=== PATIENT | female | born 1985 | race Caucasian/White ===

== ENCOUNTER → 2016-09-22 | Outpatient (REF) | payer BC ==
[~2016-09-22] MED LIST: ACET500T PO; ANUS2.5C2 EXT; DOCU100C PO; IBUP200T2 PO; MOM30SS PO; PNV-CAP5 PO
== END ==
LOC: M LAB REF 12:52
PROVIDERS: ATTEND Obstetrics & Gynecology
DX: R30.0 Dysuria (principal)

== ENCOUNTER → 2016-10-20 | Outpatient (CLI) | payer BC ==
--- NOTE | 2016-10-20 11:32 | REP ---
Obstetric sonography: History: Supervision of , followup anatomy. Findings: Scanning through the gravid uterus demonstrates a viable single intrauterine gestation in a breech lie. motion is observed and heart rate is recorded at 160 beats per minute. An anterior fundal grade zero placenta is seen without evidence of previa or abruption. Amniotic fluid is subjectively normal. Closed cervical length is 3.6 cm measured trans vaginally. Cerclage is noted near the internal os previously placed. No extrauterine abnormality is observed. The umbilical cord is seen draping across the shoulders. No anomaly is seen. The following anatomic structures are identified and felt to be sonographically unremarkable today: cranium, choroid plexus, cavum, cerebellum and posterior fossa, face and profile, lungs, four-chamber heart with left and right ventricular outflow tract views, diaphragm, left-sided stomach, abdominal wall cord insertion, three-vessel umbilical cord, kidneys and bladder, spine, upper and lower extremities. Biometry chart: BPD 23.1 cm 25 weeks 1 day Abdominal circumference 19.3 cm 24 weeks 0 days Femur length 4.2 cm 23 weeks 6 days Humeral length 4.2 cm 25 weeks 2 days HC/AC ratio normal 1.19. Estimated weight 663 grams, 1 pound 7 ounces, 28th percentile for 24 weeks 5 days. Impression: Viable single intrauterine gestation at 24 weeks 4 days by today's composite sonographic criteria. LAMAR by today's sonography February 05, 2017. anatomic survey is felt to be complete. Closed cervical length is 3.6 cm measured trans vaginally. Cervical cerclage seen in place. Signed by Daljit Alba MD 10/20/2016 02:23 P
== END ==
LOC: M RAD 09:11
PROVIDERS: ATTEND Obstetrics & Gynecology
DX: Z36 Encounter for antenatal screening of mother (principal); Z3A.24 24 weeks gestation of pregnancy

== ENCOUNTER → 2016-10-25 | Outpatient (REF) | payer BC | LOC: M LAB REF 13:09 | PROVIDERS: ATTEND Obstetrics & Gynecology | DX: O09.291 Supervision of pregnancy with other poor reproductive or obstetric history, first trimester (principal); Z3A.00 Weeks of gestation of pregnancy not specified ==

== ENCOUNTER → 2016-11-01 | Outpatient (CLI) | payer BC ==
[2016-11-01 12:20] LABS: MEAN CORPUSCULAR HEMOGLOBIN 30.5 pg (27.0-33.0); MEAN CORPUSCULAR HGB CONC 33.1 g/dl (32.0-36.5); MEAN CORPUSCULAR VOLUME 92.2 fl (80.0-96.0); RED CELL DISTRIBUTION WIDTH 13.2 % (11.5-14.5); WHITE BLOOD COUNT 8.9 K/mm3 (4.0-10.0)
== END ==
LOC: M SMT 08:35
PROVIDERS: ATTEND Obstetrics & Gynecology
DX: O09.292 Supervision of pregnancy with other poor reproductive or obstetric history, second trimester (principal); Z3A.00 Weeks of gestation of pregnancy not specified

== ENCOUNTER → 2016-12-21 | Outpatient (CLI) | payer BC ==
--- NOTE | 2016-12-21 09:42 | REP ---
Obstetric ultrasound for biophysical profile: Gestational age. According to the first ultrasound during this gestation is 33 weeks 3 days with an LAMAR of 02/05/2017. heart rate is 155 beats per minute. Cervix is 4.3 cm length. There is a single intrauterine gestation in a vertex presentation. Placenta is anterior without previa or abruptio. The placenta demonstrates grade 1 maturity. The amniotic fluid index is 15.5 (8.5 - 24.3). Biophysical profile: Breathing 2 Movement 2 Tone 2 AFV 2 Total / Umbilical artery Doppler assessment: S/D ratio 2.53 (2.30-3.30) Resistive Index 0.60 (0.59-0.75 Diastolic Velocity 15.0 cm/sec (>10 cm/sec) No additional evaluation is requested or performed. Signed by Jarrett Merrill MD 12/21/2016 09:33 A
== END ==
LOC: M RAD 07:56
PROVIDERS: ATTEND Obstetrics & Gynecology
DX: Z34.83 Encounter for supervision of other normal pregnancy, third trimester (principal); M32.9 Systemic lupus erythematosus, unspecified

== ENCOUNTER → 2016-12-27 | Outpatient (CLI) | payer BC ==
--- NOTE | 2016-12-27 16:05 | REP ---
OB ULTRASOUND: HISTORY: Followup growth. Multiple sonographic images of the gravid uterus show a single living intrauterine gestation in the cephalic presentation. Doppler interrogation of the heart was not documented, however, the cytology technologist has stated in the worksheet that cardiac motion was observed. The placenta is anterior and not low lying. The subjective amniotic fluid volume is within normal limits. Doppler interrogation of the umbilical cord shows an AB ratio of 2.4. This is within the normal range of 2 to 3. The calculated amniotic fluid index is 8.9 with an expected range 8 to 24.8. BPD 9.1 cm = 36 weeks 5 days HC 31.8 cm = 35 weeks 5 days AC 29.7 cm = 33 weeks 4 days FL 6.4 cm = 33 weeks 1 day The estimated weight is 3222 grams which is at the 39th percentile for a 34 week 3 days gestational age. IMPRESSION: Single living intrauterine gestation as described above with an estimated gestational age of 34 weeks 1 day by composite criteria and an estimated date of delivery of 02/06/2017 by today's exam. Signed by Sotero Hay DO 12/28/2016 09:01 A
== END ==
LOC: M SMT 14:19
PROVIDERS: ATTEND Specialist
DX: O36.59 Maternal care for other known or suspected poor fetal growth (principal)

== ENCOUNTER → 2017-01-14 | Outpatient (REF) | payer BC | LOC: M LAB REF 13:22 | PROVIDERS: ATTEND Obstetrics & Gynecology | DX: Z34.83 Encounter for supervision of other normal pregnancy, third trimester (principal) ==

== ENCOUNTER → 2017-01-20 | Outpatient (CLI) | payer BC ==
[~2017-01-20] MED LIST changes: +ASPI81TA85 PO; +HEPA1010VL INJ; +HYDR200T3 PO; +PRENTAB9 PO; +VITA200038 PO
--- NOTE | 2017-01-21 03:37 | REP ---
Clinical: Growth evaluation. Comparison: 12/27/2016 . Findings: Examination demonstrates a single live intrauterine in cephalic presentation. motion is identified by technologist. Placenta is noted anteriorly and grade I without evidence for placenta previa or abruption. Amniotic fluid volume is normal. Nuchal cord cannot be excluded. Gestational age by LMP 37 weeks 6 days with LAMAR 02/04/2017 . Gestational age by current measurements 37 weeks 1 day with LAMAR 02/09/2017 . FHR equals 150 beats per minute. BPD 9.6 cm 39 weeks 1 day HC 33.7 cm 38 weeks 4 days AC 33.3 cm 37 weeks 1 day FL 7.1 cm 36 weeks 3 days HC/AC ratio 1.01 Estimated weight 3193 grams ( 49th percentile). Amniotic fluid index equals 11.2 cm (7.3 - 24.0). Impression: 1. Single live advanced gestation in cephalic presentation demonstrating appropriate interval growth. 2. Nuchal cord cannot be excluded. 3. No gross abnormalities are identified. Signed by eLe Miller MD 01/21/2017 03:28 A
== END ==
LOC: M SMT 08:37
PROVIDERS: ATTEND Obstetrics & Gynecology
DX: Z34.83 Encounter for supervision of other normal pregnancy, third trimester (principal)

== ENCOUNTER 2017-02-07 07:37 | Inpatient (IN) | payer BC ==
[2017-02-07] VITALS (8 sets, daily range): BP systolic 103–125; BP diastolic 53–71
[~2017-02-07] VITALS: Ht 165.1 cm; Wt 108.0 kg
[2017-02-07] MEDS ORDERED: [UNRECOGNIZED DRUG - OTHER] PO (08:29)
[2017-02-07] MEDS ORDERED: LR 500 ML IV ONE (08:30)
[2017-02-07] MEDS ORDERED: BICITRA 30ML SOLN UDC PO ONE (08:30)
[2017-02-07 08:54] LABS: MEAN CORPUSCULAR HEMOGLOBIN 31.2 pg (27.0-33.0); MEAN CORPUSCULAR HGB CONC 34.7 g/dl (32.0-36.5); RED CELL DISTRIBUTION WIDTH 13.3 % (11.5-14.5); WHITE BLOOD COUNT 8.4 K/mm3 (4.0-10.0)
[2017-02-07] MEDS ORDERED: NALOXONE INJ 0.4 MG/1 ML VIAL (J2310) IV PRN ×2 (09:55)
[2017-02-07] MEDS ORDERED: METOCLOPRAMIDE INJ 10MG/2ML VIAL (J2765) IV PRN ×2 (09:55→11:45)
[2017-02-07] MEDS ORDERED: ONDANSETRON 4MG/2ML VIAL (J2405) IV PRN ×3 (09:55→11:45)
[2017-02-07] MEDS ORDERED: NALBUPHINE HCL 10 MG/ML AMP (J2300) IV PRN ×2 (09:55→11:45)
[2017-02-07] MEDS ORDERED: KETOROLAC 60 MG/2 ML VIAL (J1885) As Ordered ONE (10:07)
[2017-02-07] MEDS ORDERED: OXYTOCIN INJ 10 UNITS/ML VIAL (J2590) As Ordered ONE ×2 (10:07→10:38)
[2017-02-07] MEDS ORDERED: ONDANSETRON 4MG/2ML VIAL (J2405) As Ordered ONE (10:07)
[2017-02-07] MEDS ORDERED: PHENYLephrine HCL 500 MCG/5 ML (100MCG/ML) SYRINGE (J2370) As Ordered ONE ×2 (10:07→10:14)
[2017-02-07] MEDS ORDERED: ePHEDrine SULFATE 25 MG/5 ML(5MG/ML) SYRINGE As Ordered ONE ×2 (10:07→10:14)
[2017-02-07] MEDS ORDERED: MORPHINE PRES-FREE INJ 10 MG/10 ML VIAL (J2274) As Ordered ONE (10:07)
[2017-02-07] MEDS ORDERED: dexameTHASONE 4 MG/ML 1ML VIAL (J1100) As Ordered ONE (10:07)
[2017-02-07] MEDS: LR 1,000 ML IV SCH ×2 (11:08→15:55)
[2017-02-07] MEDS ORDERED: PROMETHAZINE 25 MG TAB PO PRN (11:15)
[2017-02-07] MEDS ORDERED: MEASLES,MUMPS,RUBELLA VACCINE INJ (MMR-II) (90707) SC SCH (11:15)
[2017-02-07] MEDS ORDERED: RHOGAM 300 MCG (1500 IU) INJ (J2790) IM SCH (11:15)
[2017-02-07] MEDS ORDERED: PERCOCET 5MG/325MG TAB PO PRN ×2 (11:15)
[2017-02-07] MEDS ORDERED: LR 1,000 ML IV SCH (11:45)
[2017-02-07] MEDS ORDERED: fentaNYL 100 MCG/2 ML INJECTION (J3010) IV PRN (11:45)
[2017-02-07] MEDS ORDERED: MEPERIDINE INJ 25 MG/ML VIAL (J2175) IV PRN (11:45)
[2017-02-07] MEDS: OXYTOCIN DRIP 30 UNITS in APPROPRIATE DILUENT 1 EA IV SCH ×2 (11:56→15:30)
[2017-02-07] MEDS: DOCUSATE SODIUM 100 MG CAP PO SCH ×2 (12:43→20:55)
[2017-02-07] MEDS: PRENATAL VITAMIN TAB PO SCH (12:43)
[2017-02-07] MEDS: KETOROLAC 30 MG/ML VIAL (J1885) IV SCH ×2 (16:49→22:18)
[2017-02-07] MEDS: ENOXAPARIN 40 MG/0.4 ML SYRINGE (J1650) SC SCH (18:46)
[2017-02-07] MEDS: HYDROXYCHLOROQUINE 200 MG TAB PO SCH (18:46)
[2017-02-08 02:30] VITALS: BP 102/55
[2017-02-08] MEDS: KETOROLAC 30 MG/ML VIAL (J1885) IV SCH ×2 (04:06→10:35)
[2017-02-08 06:14] VITALS: BP 96/51
[2017-02-08 06:53] LABS: MEAN CORPUSCULAR HEMOGLOBIN 31.2 pg (27.0-33.0); MEAN CORPUSCULAR HGB CONC 34.4 g/dl (32.0-36.5); MEAN CORPUSCULAR VOLUME 90.8 fl (80.0-96.0); RED CELL DISTRIBUTION WIDTH 13.5 % (11.5-14.5); WHITE BLOOD COUNT 14.9 K/mm3 (4.0-10.0)
[2017-02-08] MEDS: DOCUSATE SODIUM 100 MG CAP PO SCH ×2 (07:43→21:31)
[2017-02-08] MEDS: PRENATAL VITAMIN TAB PO SCH (07:43)
[2017-02-08] MEDS ORDERED: OXYC1TAB23 PO (08:49)
[2017-02-08] MEDS ORDERED: IBUP600T26 PO (08:50)
[2017-02-08] MEDS ORDERED: COLA100C3 PO (08:51)
[2017-02-08 10:00] VITALS: BP 129/63
[2017-02-08 14:00] VITALS: BP 120/58
[2017-02-08] MEDS: ENOXAPARIN 40 MG/0.4 ML SYRINGE (J1650) SC SCH (17:48)
[2017-02-08] MEDS: HYDROXYCHLOROQUINE 200 MG TAB PO SCH (17:48)
[2017-02-08] MEDS: IBUPROFEN 800 MG TAB PO SCH (17:49)
[2017-02-08 17:58] VITALS: BP 102/50
[2017-02-08] MEDS ORDERED: SIMETHICONE 80 MG CHEW TAB PO PRN (19:00)
[2017-02-08 22:25] VITALS: BP 115/73
[2017-02-09] MEDS: IBUPROFEN 800 MG TAB PO SCH ×2 (02:00→08:36)
[2017-02-09 06:17] VITALS: BP 106/50
[2017-02-09] MEDS: PRENATAL VITAMIN TAB PO SCH (08:36)
[2017-02-09] MEDS: DOCUSATE SODIUM 100 MG CAP PO SCH (08:36)
[2017-02-09] MEDS ORDERED: plaquenil PO (08:43)
[2017-02-09] MEDS ORDERED: IBUP-1114 PO (08:43)
[2017-02-09] MEDS ORDERED: MYLI40DR PO (08:43)
[2017-02-09] MEDS ORDERED: LOVE1INJ SC (08:43)
[2017-02-09] MEDS ORDERED: OXYC1TAB23 PO (08:43)
== END 2017-02-09 15:30 | disposition home or self-care (01) | DRG 540 ==
LOC: M LDI 07:37 → M OBS 12:20
PROVIDERS: ADMIT Specialist; ATTEND Specialist
PROC: 10D00Z1 Extraction of Products of Conception, Low, Open Approach (ICD-10-PCS; principal; 2017-02-07 09:30)
DX: O34.31 Maternal care for cervical incompetence, first trimester (principal); D68.61 Antiphospholipid syndrome; O99.12 Other diseases of the blood and blood-forming organs and certain disorders involving the immune mechanism complicating childbirth; Z37.0 Single live birth; Z3A.39 39 weeks gestation of pregnancy; Z87.51 Personal history of pre-term labor

== ENCOUNTER → 2018-05-08 | Outpatient (CLI) | payer BC | LOC: M ADAMS 19:18 | DX: M25.512 Pain in left shoulder (principal) | CPT/HCPCS: 73030 ==

== ENCOUNTER → 2018-10-19 | Outpatient (REF) | payer BC ==
[~2018-10-19] MED LIST changes: +COLA100C5 PO; +IBUP-1022 PO; +IBUP-1114 PO; +LOVE1INJ SC; +MYLI40DR PO; +OXYC1TAB23 PO; +[UNRECOGNIZED DRUG - OTHER] PO; +plaquenil PO
[2018-10-24 14:17] LABS: HPV HYBRID CAPTURE II Negative (Negative)
== END ==
LOC: M LAB REF 17:29
PROVIDERS: ATTEND Obstetrics & Gynecology
DX: Z12.4 Encounter for screening for malignant neoplasm of cervix (principal)
CPT/HCPCS: 87624; G0123

== ENCOUNTER → 2018-11-08 | Outpatient (CLI) | payer BC ==
[2018-11-08 14:19] LABS: BASO % 0.2 % (0.0-1.0); EOS # 0.1 10^3/uL (0.0-0.50); EOS % 1.1 % (0.0-3.0); HEMATOCRIT 43.3 % (36.0-47.0); HEMOGLOBIN 13.9 g/dl (12.0-15.5); LYMPH # 1.3 10^3/uL (1.5-4.5); LYMPH % 13.5 % (24.0-44.0); MEAN CORPUSCULAR HEMOGLOBIN 29.6 pg (27.0-33.0); MEAN CORPUSCULAR HGB CONC 32.1 g/dl (32.0-36.5); MEAN CORPUSCULAR VOLUME 92.3 fl (80.0-96.0); MONO # 0.6 10^3/uL (0.0-0.8); MONO % 6.3 % (0.0-5.0); NEUTROPHILS # 7.3 10^3/uL (1.8-7.7); NEUTROPHILS % 78.6 % (36.0-66.0); PLATELET COUNT, AUTOMATED 173 10^3/uL (150-450); RED BLOOD COUNT 4.69 10^6/uL (4.00-5.40); WHITE BLOOD COUNT 9.3 10^3/uL (4.0-10.0)
[2018-11-08 14:24] LABS: ALT/SGPT 15 U/L (12-78); BILIRUBIN,TOTAL 0.6 MG/DL (0.2-1.0); GLOMERULAR FILTRATION RATE > 60.0 (>60); GLUCOSE CHALLENGE TEST 1 HOUR 104 MG/DL (LESS THAN 140); LDH LACTATE DEHYDROGENASE 162 U/L (84-246); URIC ACID 2.7 MG/DL (2.6-6.0)
[2018-11-08 14:45] LABS: RUBELLA IgG QUALITATIVE IMMUNE (IMMUNE)
[2018-11-08 14:46] LABS: TOTAL PROTEIN,RANDOM URINE < 5.0 MG/DL (0.0-12.0)
[2018-11-08 15:13] LABS: HIV 1&2 SCREEN CENTAUR NEGATIVE (NEGATIVE)
[2018-11-08 16:59] LABS: CHLAMYDIA DNA AMPLIFICATION NEGATIVE (NEGATIVE); GC DNA AMPLIFICATION NEGATIVE (NEGATIVE)
== END ==
LOC: M SMT 09:36
PROVIDERS: ATTEND Obstetrics & Gynecology
DX: Z34.81 Encounter for supervision of other normal pregnancy, first trimester (principal); Z3A.08 8 weeks gestation of pregnancy; Z36.89 Encounter for other specified antenatal screening

== ENCOUNTER → 2018-11-15 | Outpatient (CLI) | payer BC ==
[2018-11-15 11:06] LABS: FREE T4 1.05 NG/DL (0.76-1.46); THYROID STIMULATING HORMONE 0.8 uIU/ML (0.358-3.740); TOTAL 25(OH) VITAMIN D 20.3 NG/ML (30.0-100.0)
== END ==
LOC: M SMT 08:58
PROVIDERS: ATTEND Advanced Practice Midwife
DX: F39 Unspecified mood [affective] disorder (principal)

== ENCOUNTER → 2019-03-02 | Outpatient (CLI) | payer BC ==
[2019-03-02 13:34] LABS: HEMATOCRIT 39.1 % (36.0-47.0); HEMOGLOBIN 12.9 g/dl (12.0-15.5); PLATELET COUNT, AUTOMATED 158 10^3/uL (150-450); RED BLOOD COUNT 4.16 10^6/uL (4.00-5.40); WHITE BLOOD COUNT 7.9 10^3/uL (4.0-10.0)
== END ==
LOC: M SMT 09:31
PROVIDERS: ATTEND Obstetrics & Gynecology
DX: O09.292 Supervision of pregnancy with other poor reproductive or obstetric history, second trimester (principal); Z3A.00 Weeks of gestation of pregnancy not specified

== ENCOUNTER → 2019-03-13 | Outpatient (CLI) | payer BC ==
--- NOTE | 2019-03-13 08:44 | REP ---
Clinical: Growth evaluation. Comparison: None Findings: Examination demonstrates a single live intrauterine in cephalic presentation. motion is identified by technologist. Placenta is noted posterior and grade one without evidence for placenta previa or abruption. Amniotic fluid volume is normal. Cervix measures 4.1 cm in length and appears closed. No evidence for nuchal cord. Gestational age by LMP 28 weeks 6 days with LAMAR 05/30/2019 . Gestational age by current measurements 31 weeks 6 days with LAMAR 05/09/2019 . FHR equals 153 beats per minute. BPD 8.1 cm 32 weeks 3 days HC 29.2 cm 32 weeks 1 day AC 26.6 cm 30 weeks 5 days FL 6.1 cm 31 weeks 6 days HL 5.5 cm 32 weeks 0 days HC/AC ratio 1.09 Estimated weight 1753 grams (*Greater than 97th percentile based on age by LMP). Amniotic fluid index: 12.3 cm (deepest pocket). Umbilical cord SD ratio: 3.12 Anatomical assessment demonstrates normal structures including cranium, choroid plexus, cavum, cerebellum/posterior fossa, facial features, lungs, four-chamber heart, diaphragm, stomach, cord insertion/three-vessel cord, kidneys/bladder, and lower extremities. Impression: 1. Single live intrauterine in cephalic presentation. Growth and estimated weight are greater than expected based on LMP. No prior examinations are available for comparison. 2. No obvious anatomical abnormalities are appreciated, but evaluation of the cardiac ventricular outflow tracts, spine and upper extremities are limited due to positioning and the age. Electronically Signed by Lee Miller MD 03/13/2019 08:36 A
== END ==
LOC: M RAD 07:39
PROVIDERS: ATTEND Advanced Practice Midwife
DX: O26.843 Uterine size-date discrepancy, third trimester (principal); Z3A.31 31 weeks gestation of pregnancy

== ENCOUNTER → 2019-04-06 | Outpatient (CLI) | payer BC ==
--- NOTE | 2019-04-06 15:47 | REP ---
Obstetric ultrasound for biophysical profile: There is a single intrauterine gestation in a vertex presentation. heart rate is 152 beats per minute. The cervix measures 4.0 cm length. Gestational age by the first ultrasound is 35 weeks 2 days with an LAMAR of 05/09/2019. Gestational age by LMP is 32 weeks 2 days/LAMAR 05/30/2019. Subjectively the amniotic fluid volume is normal. The amniotic fluid index is 14.1 (8.5 - 24.3). biophysical profile: Breathing 2.0 Movement 2.0 Tone 2.0 AFV 2.0 Total 8.0 / 8.0 Umbilical artery Doppler assessment: S/D ratio 2.37 (2.30-3.30) Resistive Index 0.58 (0.59-0.75 Diastolic Velocity 18.1 (>10 cm/sec) Electronically Signed by Jarrett Merrill MD 04/06/2019 03:39 P
== END ==
LOC: M RAD 14:41
PROVIDERS: ATTEND Specialist
DX: O09.213 Supervision of pregnancy with history of pre-term labor, third trimester (principal)

== ENCOUNTER → 2019-04-13 | Outpatient (CLI) | payer BC ==
--- NOTE | 2019-04-13 16:15 | REP ---
Obstetric ultrasound, third trimester for biophysical profile. The colon. There is a single intrauterine gestation in a vertex presentation. heart rate is 139 beats per minute. The amniotic fluid volume subjectively is normal. The amniotic fluid index is 14.9 (8.2 - 24.6). biophysical profile: Breathing 2.0 Movement 2.0 Tone 0.0 AFV 2.0 Total 8.0 / 8.0 Umbilical artery Doppler assessment: S/D ratio 2.27 (2.30-3.30) Resistive Index 0.56 (0.59-0.75 Diastolic Velocity 20.1. (>10 cm/sec) the Gestational age by the first ultrasound is 36 weeks 2 days/LAMAR 04/20/2019. Gestational age by LMP is 33 weeks 2 days/LAMAR 05/20/2019. The Cervix measures 3.6 cm length. Electronically Signed by Jarrett Merrill MD 04/13/2019 04:07 P
== END ==
LOC: M RAD 14:47
PROVIDERS: ATTEND Specialist
DX: O09.213 Supervision of pregnancy with history of pre-term labor, third trimester (principal); O09.523 Supervision of elderly multigravida, third trimester; Z3A.36 36 weeks gestation of pregnancy

== ENCOUNTER → 2019-04-20 | Outpatient (CLI) | payer BC ==
--- NOTE | 2019-04-20 16:34 | REP ---
Trimester obstetric ultrasound in a patient with history of labor. There is a single intrauterine gestation in a vertex presentation. There is movement and cardiac activity. heart rate is 141 beats per minute. The placenta is posterior / fundal. There is no placenta previa or abruptio. The placenta is grade II. The amniotic fluid volume subjectively is normal. The amniotic fluid index is 13.5 (8.0 - 24.8). The cervix measures 3.2 cm length. Gestational age by today's ultrasound is 37 weeks 1 day/LAMAR 05/10/2019. Gestational age by the first ultrasound is 37 weeks 2 days/LAMAR 05/09/2019. Gestational age by LMP is 34 weeks 2 days/LAMAR 05/30/2019. weight is 3259 grams/7 pounds, 2 ounces. This is greater than 97th percentile for 34 weeks 2 days. biophysical profile: Breathing 2.0 Movement 2.0 Tone 2.0 AFV 2.0 Total 8.0 / 8.0 Umbilical artery Doppler assessment: S/D ratio 2.11 (2.30-3.30) Resistive Index 0.53 (0.59-0.75) Diastolic Velocity 32.3 (>10 cm/sec) Electronically Signed by Jarrett Merrill MD 04/20/2019 04:26 P
== END ==
LOC: M RAD 14:51
PROVIDERS: ATTEND Specialist
DX: O99.213 Obesity complicating pregnancy, third trimester (principal); O09.523 Supervision of elderly multigravida, third trimester; E66.9 Obesity, unspecified; Z3A.37 37 weeks gestation of pregnancy

== ENCOUNTER → 2019-04-27 | Outpatient (CLI) | payer BC ==
--- NOTE | 2019-04-28 09:59 | REP ---
HISTORY: High risk . COMPARISON: Multiple priors. Multiple ultrasonographic images of the gravid uterus show a single living intrauterine gestation in the cephalic presentation. Doppler interrogation of the heart shows a heart rate of 155 beats per minute. The cervix measures 3.2 cm in length and is closed. The subjective amniotic fluid volume is within normal limits. The calculated amniotic fluid index is within normal limits at 15.3 with an expected range of 7.8 to 24.9. Doppler interrogation of the umbilical artery shows an A/B ratio of 2.33. This is within the normal range. The placenta is posterior, fundal and not low lying. The umbilical cord was seen draping over the neck. biophysical profile score is 2 for breathing, 2 for movement, 2 for tone and 2 for amniotic fluid volume giving a sum total of 8 out of 8. IMPRESSION: Limited OB ultrasound as described above. Electronically Signed by Sotero Hay DO 04/28/2019 09:06 A
== END ==
LOC: M RAD 16:59
PROVIDERS: ATTEND Specialist
DX: O09.213 Supervision of pregnancy with history of pre-term labor, third trimester (principal); Z3A.35 35 weeks gestation of pregnancy

== ENCOUNTER → 2019-04-30 | Outpatient (REF) | payer BC | LOC: M LAB REF 12:48 | PROVIDERS: ATTEND Specialist | DX: O09.213 Supervision of pregnancy with history of pre-term labor, third trimester (principal); O09.523 Supervision of elderly multigravida, third trimester ==

== ENCOUNTER → 2019-05-04 | Outpatient (CLI) | payer BC ==
--- NOTE | 2019-05-04 16:04 | REP ---
Obstetric sonography: History: Supervision of history of labor. Limited exam. Findings: Scanning through the gravid uterus demonstrates a smooth pliable single intrauterine gestation in a cephalic lie. A posterior placenta is seen grade 2 without evidence of placenta previa or abruption. Amniotic fluid is subjectively normal. SIOBHAN is normal at 16.8 cm. Biophysical profile score is eight out of a possible eight. SD ratio in the umbilical cord artery by Doppler is normal at 2.26. Closed cervical length viewed transabdominally is 3.0 cm. heart rate is recorded at 144 beats per minute. Electronically Signed by Daljit Alba MD 05/04/2019 03:55 P
== END ==
LOC: M RAD 15:07
PROVIDERS: ATTEND Specialist
DX: O09.213 Supervision of pregnancy with history of pre-term labor, third trimester (principal); Z3A.36 36 weeks gestation of pregnancy

== ENCOUNTER → 2019-05-11 | Outpatient (CLI) | payer BC ==
--- NOTE | 2019-05-11 16:40 | REP ---
OB ULTRASOUND: Biophysical profile. Real-time sonographic evaluation of gravid uterus is performed. There is a single living intrauterine gestation. The estimated gestational age is 40 weeks 2 days, EDC 05/09/2019. This is based on the first ultrasound. Estimated age based on LMP is 37 weeks 2 days. EDC 05/30/2019. Cervix is closed and measures 3.1 cm in length. heart rate 168 beats per minute. Amniotic fluid within normal limits. SIOBHAN is 11.3 within normal range of 7.4 to 24.3. Biophysical profile score is 8/8. SD ratio 1.99 is within normal range of 1.6 to 2.6. RI 0.50 is below normal range of 0.59 to 0.75. position is vertex. Placenta is posterior and grade 2 with no previa or abruption. IMPRESSION: Biophysical score 8/8. Electronically Signed by Jarrett Trevino MD 05/13/2019 11:07 P
== END ==
LOC: M RAD 15:11
PROVIDERS: ATTEND Specialist
DX: O09.213 Supervision of pregnancy with history of pre-term labor, third trimester (principal); Z3A.40 40 weeks gestation of pregnancy

== ENCOUNTER 2019-05-18 13:50 | Inpatient (IN) | payer BC ==
[~2019-05-18] VITALS: Ht 167.6 cm; Wt 118.8 kg
[2019-05-18 14:09] VITALS: BP 135/74
[2019-05-18] MEDS ORDERED: LACTATED RINGER'S 1000 ML IV STA (14:46)
[2019-05-18] MEDS ORDERED: LR 1,000 ML IV SCH ×2 (14:46→19:15)
--- NOTE | 2019-05-18 14:46 | HPEPDOC ---
Obstetrical History & Physical General Date of Admission May 18, 2019 at 14:21 History of Present Illness Chief Complaint: Contractions, term Information Provided By: Patient Age: 34 : 5 Term: 1 Abortions: 3 Livin Care Care: Good Care Dating Final EDC: May 30, 2019 Final EDC by: LMP EGA at Admission: 39 (+2) Antepartum Course Height (inches): 65 Pre- weight (lbs.): 252 Admission Weight (lbs.): 262 Past Medical History Past Obstetrical History #1: Past Obstetrical History: Primgravida (2012) Type of Delivery: Spontaneous Vaginal Del. Sex of Infant: Male Complications: Yes (PPROM IUFD chorio 20w4d) Past Obstetrical History #2: Past Obstetrical History: Multigravida (2012) Type of Delivery: Spontaneous Vaginal Del. Sex of Infant: Female Complications: Yes (PROM IUFD chorio cerclage 18w3d) Past Obstetrical History #3: Past Obstetrical History: Multigravida (2016) Type of Delivery: Ceserean section Sex of Infant: Male (8#) Complications: Yes (keo abdominal cerclage) Past Obstetrical History #4: Past Obstetrical History: Multigravida GLOBAL MARKETING COORDINATOR History: Spontaneous (2010), Abnormal Pap, Other (abdominal cerclage) Past Medical History Medical History Lupus, antiphospholipid syndrome, SSA Ab positive Surgical History: section, Other (LEEP, cone bx) Family History Significant Family History: Diabetes, Heart disease, Hypertension Social History Marital Status: Family situation: Spouse/partner home * Smoker: non-smoker Alcohol: Denies Drugs: denies Allergies Coded Allergies: diphenhydramine (Verified Adverse Reaction, Unknown, REVERSED REACTION, 05/10/19) Medications Scheduled Enoxaparin Sodium (Lovenox) 40 Mg/0.4 Ml Inj, 40 MG SC DAILY at 1800 Hydroxychloroquine Sulfate (Hydroxychloroquine Sulfate) 200 Mg Tab, 400 MG PO DAILY No.137/Iron/Folic Acd ( Vitamin Tablet) 1 Tab Tab, 1 TAB PO DAILY Physical Examination Physical Examination GENERAL: Alert and oriented times three. BREAST: . ABDOMEN: Gravid and non-tender to touch. FETUS: Vertex HEART RATE: Regular rate and rhythm. LUNGS: Clear to auscultation (CTA). EXTREMITIES: No edema. No clonus. Deep tendon reflexes (DTRs) + . Vital Signs/I&O Vital Signs Date Time Temp Pulse Resp B/P (MAP) Pulse Ox O2 Delivery O2 Flow Rate FiO2 05/18/19 14:09 97.2 83 18 135/74 (94) Pertinent Laboratoy Data Blood Type: O+ RBC Antibody Screen: Positive (Anti I) HIV: Negative Hepatitis B: Negative Hepatitis C: Negative Rapid Plasma Reagin: Nonreactive Rubella: Immune Chlamydia/Gonorrhea: Negative Group B Streptococcus: Positive Glucose Tolerance Test: 111 Diag/Inter Therapy Received [place] injections 16-36 wks due to history PNC consultation recommended modified PN visits, antepartal testing Lovenox injections. Last injection 2 days ago "when I was feeling uncomfortable" Anatomy Ultrasound Ultrasound Date: Jan 11, 2019 Placenta Location: Posterior Normal Anatomy: Yes Placenta Previa: No Estimated Weight (grams): 464 Other Ultrasounds 10/19/18 dating 8w1d 03/13/19 growth 1753gm >97% 04/06/19 BPP 8/8 04/13/19 BPP 8/8 04/20/19 BPP 8/8, EFW 3259gm >97% 04/27/19 BPP 8/8 05/04/19 BPP 8/8 Steroid Therapy Steroid Therapy: No Vaginal Examination Effacement: other (deferred due to history) Assessment Heart Rate (FHR): 145 Variability: Moderate Accelerations: Positive Decelerations: None Tocometer Contractions: Yes Frequency: regular, every 2-5 min. Strength: palpated as moderate Assessment/Plan Assessment Leida is a 34-year-old (G)5 para (P)1-0-3-1 at 38+2 weeks by 8-week ultrasound. Presents to Labor and Delivery (L&D) with complaints of contractions steadily since this am. Denies LOF or bleeding. Fetus is active. History sig nificant for Lupus, abdominal cerclage and previous section. She has been taking Lovenox, last dose 2 days ago. Plan Admit and orient per consult Dr Araujo Leaflet Distributor and consent. Diet: NPO. Group B Streptococcus (GBS) positive. Labs and intravenous (IV) per unit protocol. Lactated Ringers (LR): Bolus 1000 mL, then at 125 mL/hr. Plan repeat section Anabelle Rocha CNM May 18, 2019 14:46
[2019-05-18] MEDS ORDERED: ceFAZolin SOD 2 GM in IV 1 EA IV ONE (15:00)
[2019-05-18] MEDS ORDERED: BICITRA 30ML SOLN UDC PO ONE (15:00)
[2019-05-18 15:59] LABS: HEMATOCRIT 39.8 % (36.0-47.0); HEMOGLOBIN 13.5 g/dl (12.0-15.5); MEAN CORPUSCULAR HEMOGLOBIN 30.2 pg (27.0-33.0); MEAN CORPUSCULAR HGB CONC 33.9 g/dl (32.0-36.5); PLATELET COUNT, AUTOMATED 138 10^3/uL (150-450); RED BLOOD COUNT 4.47 10^6/uL (4.00-5.40); WHITE BLOOD COUNT 9.1 10^3/uL (4.0-10.0)
[2019-05-18] MEDS ORDERED: ONDANSETRON 4MG/2ML VIAL (J2405) As Ordered ONE (17:19)
[2019-05-18] MEDS ORDERED: MORPHINE PRES-FREE INJ 10 MG/10 ML VIAL (J2274) As Ordered ONE (17:19)
[2019-05-18] MEDS ORDERED: OXYTOCIN INJ 10 UNITS/ML VIAL (J2590) As Ordered ONE (17:19)
[2019-05-18] MEDS ORDERED: BUPIVACAINE/DEXTROSE 0.75% 2 ML AMP As Ordered ONE (17:19)
[2019-05-18] MEDS ORDERED: ePHEDrine SULFATE 25 MG/5 ML(5MG/ML) SYRINGE As Ordered ONE (17:21)
[2019-05-18] MEDS ORDERED: KETOROLAC 60 MG/2 ML VIAL (J1885) As Ordered ONE (17:24)
[2019-05-18] MEDS ORDERED: PERCOCET 5MG/325MG TAB PO PRN ×3 (18:30→19:15)
[2019-05-18] MEDS ORDERED: DOCUSATE SODIUM 100 MG CAP PO PRN (18:30)
[2019-05-18] MEDS: LR 1,000 ML IV SCH (18:30)
[2019-05-18] MEDS ORDERED: OXYTOCIN DRIP 30 UNITS in IV 1 EA IV SCH (18:30)
[2019-05-18] MEDS ORDERED: ONDANSETRON 4MG/2ML VIAL (J2405) IV PRN ×2 (18:30→19:15)
[2019-05-18] MEDS ORDERED: RHOGAM 300 MCG (1500 IU) INJ (J2790) IM SCH (18:30)
[2019-05-18] MEDS ORDERED: MEASLES,MUMPS,RUBELLA VACCINE INJ (MMR-II) (90707) SC SCH (18:30)
[2019-05-18] MEDS ORDERED: fentaNYL 100 MCG/2 ML INJECTION (J3010) IV PRN (19:15)
[2019-05-18] MEDS ORDERED: OXYTOCIN 30 UNITS IN 0.9% NaCl 500ML IV BAG (J2590) As Ordered ONE (19:28)
[2019-05-18 20:30] VITALS: BP 111/58
[2019-05-18 21:00] VITALS: BP 106/52
[2019-05-18 22:00] VITALS: BP 110/66
[2019-05-18 23:00] VITALS: BP 116/62
--- NOTE | 2019-05-18 23:28 | RO ---
DATE OF PROCEDURE: 05/18/2019 PREPROCEDURE DIAGNOSIS: 38-2/7 weeks gestation, labor, prior section times one, history of abdominal cerclage. POSTPROCEDURE DIAGNOSIS: 38-2/7 weeks gestation, labor, prior section times one, history of abdominal cerclage. PROCEDURE: Repeat low transverse section. SURGEON: Nilton Araujo MD CANE LOADER: Berenice Baxter DO ANESTHESIA: Spinal. ESTIMATED BLOOD LOSS: 600 mL. FLUIDS: 1500 mL of lactated Ringer's (LR). URINE OUTPUT: 125 mL. FINDINGS: . 3770 gram, 8 pound 5 ounce male . scores 4 and 9. Normal uterus, fallopian tubes, and ovaries. DESCRIPTION OF PROCEDURE: The patient was taken to the operating room where spinal anesthesia was induced. She was prepped and draped in a sterile fashion in the supine position. A Millard catheter was placed. A Pfannenstiel skin incision was made with a scalpel, carried through to the fascia. The fascia was nicked and extended. The fascia was dissected off the rectus muscles. Peritoneal cavity was entered. A Mobius retractor was placed. A bladder flap was created. A curvilinear incision was made in the lower uterine segment until bulging membranes noted. This was extended manually. Membranes were ruptured of clear fluid. Delivery was accomplished with the use of the vacuum extractor. The shoulders delivered with ease. The cord was doubly clamped and cut. The was handed off to awaiting nurses. The placenta was expressed. The uterus was left in situ and cleared of clots and debris. The uterine incision was closed with #0 Vicryl in a running locked fashion. A second imbricating layer of #0 Vicryl was placed. The Mobius was removed. The peritoneum was closed with #2-0 Vicryl. The fascia was closed with #0 Vicryl in a running fashion. The deep layer was closed with #2-0 chromic, skin was closed with #4-0 Monocryl subcuticular sutures. Sponge, instrument, and needle counts were correct.
[2019-05-19] VITALS (7 sets, daily range): BP systolic 96–120; BP diastolic 51–63
[2019-05-19] MEDS: KETOROLAC 30 MG/ML VIAL (J1885) IV SCH ×3 (00:15→12:49)
[2019-05-19] MEDS: LR 1,000 ML IV SCH ×3 (00:23→18:30)
[2019-05-19 06:50] LABS: HEMATOCRIT 34.7 % (36.0-47.0); MEAN CORPUSCULAR HEMOGLOBIN 29.8 pg (27.0-33.0); MEAN CORPUSCULAR HGB CONC 33.1 g/dl (32.0-36.5); MEAN CORPUSCULAR VOLUME 89.9 fl (80.0-96.0); PLATELET COUNT, AUTOMATED 116 10^3/uL (150-450); RED BLOOD COUNT 3.86 10^6/uL (4.00-5.40)
[2019-05-19 07:21] LABS: HEMOGLOBIN 11.5 g/dl (12.0-15.5)
--- NOTE | 2019-05-19 08:28 | IPNPDOC ---
Text Note Date of Service The patient was seen on 05/19/19. NOTE Postop Day 1 s/p repeat LTCS S: Had nausea overnight with some vomiting when she tried to eat crackers, has improved this morning. Pain well controlled, lochia and bleeding decreasing, has not voided yet because catheter was just removed, ambulating without assistance.Breast feeding. O: vitals stable Heart: RRR, no murmurs/gallops/rubs Lungs: CTA BL Abd: U-1 and firm Ext: no leg swelling, nontender, Telly's negative bilaterally A/P: 34 yo G5 now P2. Postop day 1 s/p repeat LTCS.Hemodynamically stable, afebrile, good pain control. Recovering well. -Routine care and advancement -Anticipate discharge tomorrow VS,Jelly, I+O VS, Jessicae, I+O Laboratory Tests 05/18/19 15:52 Red Blood Count 4.47, Mean Corpuscular Volume 89.0, Mean Corpuscular Hemoglobin 30.2, Mean Corpuscular Hemoglobin Concent 33.9, Red Cell Distribution Width 13.7 05/19/19 06:17 Red Blood Count 3.86 L, Mean Corpuscular Volume 89.9, Mean Corpuscular Hemoglobin 29.8, Mean Corpuscular Hemoglobin Concent 33.1, Red Cell Distribution Width 13.7 Vital Signs Date Time Temp Pulse Resp B/P (MAP) Pulse Ox O2 Delivery O2 Flow Rate FiO2 05/19/19 06:00 97.5 74 16 113/53 (17) 96 I&O- Last 24 Hours up to 6 AM 05/19/19 05:59 Intake Total 4890 ml Output Total 2100 ml Balance 2790 ml GME ATTESTATION GME ATTESTATION My faculty preceptor for this patient encounter was physically present during the encounter and was fully available. All aspects of the patient interview, examination, medical decision making process, and medical care plan development were reviewed and approved by the faculty preceptor. The faculty preceptor is aware and concurs with the plan as stated in the body of this note and will attest to such by his/her cosignature. KATHIE FORBES DO May 19, 2019 08:28
[2019-05-19] MEDS: PRENATAL VITAMINS CHEWABLE TABLET PO SCH (08:29)
[2019-05-19] MEDS: IBUPROFEN 800 MG TAB PO SCH (20:10)
[2019-05-20 02:18] VITALS: BP 115/58
[2019-05-20] MEDS: LR 1,000 ML IV SCH (02:30)
[2019-05-20] MEDS: IBUPROFEN 800 MG TAB PO SCH ×2 (04:46→11:55)
[2019-05-20 06:43] VITALS: BP 100/50
[2019-05-20] MEDS ORDERED: OXYC1TAB23 PO (08:51)
[2019-05-20] MEDS: PRENATAL VITAMINS CHEWABLE TABLET PO SCH (09:25)
[2019-05-20] MEDS ORDERED: IBUP-1022 PO (09:30)
--- NOTE | 2019-05-20 15:06 | DSES ---
DATE OF ADMISSION: 05/18/2019 DATE OF DISCHARGE: HISTORY: 34-year-old G5, P1 female at 38-2/7 weeks gestation presents with regular contractions every 3-4 minutes for several hours. Contractions increased in intensity. Patient has a history of abdominal cerclage in placed as well as prior section. HOSPITAL COURSE: The patient was found to be in early labor on the day of admission on 05/18/2019 and the decision was made to proceed with repeat section as planned. On 05/18/2019, patient underwent repeat low transverse section for an 1-ampyl-1-ounce male infant. There were no complications. Postoperative course was unremarkable. She had adequate return of bladder and bowel function. Postoperative hemoglobin was 11.5 gm/dL. She was deemed stable for discharge on postoperative day #2. ADMISSION DIAGNOSES: at 38 weeks. Prior section. Abdominal cerclage. DISCHARGE DIAGNOSIS: Delivered. PROCEDURE: Low transverse section. DISPOSITION: Patient is to followup with Dr. Araujo in 2 weeks. Instructions were reviewed.
== END 2019-05-20 16:00 | disposition home or self-care (01) | DRG 540 ==
LOC: M LDO 13:50 → M LDI 14:21 → M OBS 20:22
PROVIDERS: ADMIT Advanced Practice Midwife; ATTEND Advanced Practice Midwife
PROC: 10D00Z1 Extraction of Products of Conception, Low, Open Approach (ICD-10-PCS; principal; 2019-05-18 17:30)
DX: O34.211 Maternal care for low transverse scar from previous cesarean delivery (principal); O99.820 Streptococcus B carrier state complicating pregnancy; Z37.0 Single live birth; Z3A.38 38 weeks gestation of pregnancy; O09.523 Supervision of elderly multigravida, third trimester

== ENCOUNTER → 2019-10-15 | Outpatient (REF) | payer BC | LOC: M SFHCWAGY 14:28 | PROVIDERS: ATTEND Obstetrics & Gynecology | DX: Z12.4 Encounter for screening for malignant neoplasm of cervix (principal) | CPT/HCPCS: 87624; G0123 ==

== ENCOUNTER → 2020-02-27 | Outpatient (REF) | payer BC ==
[2020-02-27 13:09] LABS: BASO % 0.5 % (0.0-1.0); EOS # 0.1 10^3/uL (0.0-0.5); EOS % 1.2 % (0.0-3.0); HEMATOCRIT 45.2 % (36.0-47.0); HEMOGLOBIN 15.1 g/dl (12.0-15.5); LYMPH # 1.3 10^3/uL (1.5-5.0); LYMPH % 23.6 % (24.0-44.0); MEAN CORPUSCULAR HEMOGLOBIN 30.2 pg (27.0-33.0); MEAN CORPUSCULAR HGB CONC 33.4 g/dl (32.0-36.5); MEAN CORPUSCULAR VOLUME 90.4 fl (80.0-96.0); MONO # 0.6 10^3/uL (0.0-0.8); NEUTROPHILS # 3.7 10^3/uL (1.5-8.5); NEUTROPHILS % 64.5 % (36.0-66.0); PLATELET COUNT, AUTOMATED 168 10^3/uL (150-450); WHITE BLOOD COUNT 5.7 10^3/uL (4.0-10.0)
[2020-02-27 13:35] LABS: ALT/SGPT 26 U/L (12-78); C REACTIVE PROTEIN QUANTITATIV 0.58 MG/DL (0.00-0.30); COMPLEMENT C3 109 MG/DL (90-180); COMPLEMENT C4 13 MG/DL (10-40); GLOMERULAR FILTRATION RATE > 60.0 (>60)
[2020-02-27 13:56] LABS: ERYTHROCYTE SEDIMENTATION RATE 9 mm/hr (0-20)
== END ==
LOC: M LABDRWAD 12:43
PROVIDERS: ATTEND Physician Assistant Medical
DX: M32.19 Other organ or system involvement in systemic lupus erythematosus (principal); Z79.899 Other long term (current) drug therapy

== ENCOUNTER → 2020-08-03 | Outpatient (REF) | payer BC ==
[~2020-08-03] MED LIST changes: -ASPI81TA85 PO; +ASPI81TA86 PO
== END ==
LOC: M WUC 16:57
PROVIDERS: ATTEND Physician Assistant
DX: N39.0 Urinary tract infection, site not specified (principal)

== ENCOUNTER → 2020-08-26 | Outpatient (CLI) | payer SELFPAY | LOC: M LABSMTC 16:56 | PROVIDERS: ATTEND Pediatrics | DX: Z11.59 Encounter for screening for other viral diseases (principal) ==

== ENCOUNTER → 2020-10-28 | Outpatient (CLI) | payer SELFPAY | LOC: M LABSMTC 10:06 | PROVIDERS: ATTEND Pediatrics | DX: Z20.822 Contact with and (suspected) exposure to COVID-19 (principal) ==

== ENCOUNTER → 2021-01-06 | Outpatient (REF) | payer BC | LOC: M SFHCWAGY 13:37 | PROVIDERS: ATTEND Nurse Practitioner Women's Health | DX: Z12.4 Encounter for screening for malignant neoplasm of cervix (principal) ==

== ENCOUNTER → 2021-02-06 | Outpatient (REF) | payer BC | LOC: M LAB REF 11:39 | PROVIDERS: ATTEND Family Medicine | DX: N39.0 Urinary tract infection, site not specified (principal) ==

== ENCOUNTER → 2021-04-15 | Outpatient (CLI) | payer BC ==
[~2021-04-15] MED LIST changes: +VITMTA PO
== END ==
LOC: M LABSMTC 09:57
PROVIDERS: ATTEND Anesthesiology
DX: Z20.828 Contact with and (suspected) exposure to other viral communicable diseases (principal); Z11.59 Encounter for screening for other viral diseases

== ENCOUNTER → 2021-04-15 | Outpatient (CLI) | payer BC ==
--- NOTE | 2021-04-15 23:48 | ECGEPIP ---
[facility] Test Date: 2021-04-15 Pat Name: STEPHON ORTIZ Department: Room: - Gender: Female Shift Boss: MISAEL : 1985 Requested By: Chidi Monique Order Number: [id number] Reading MD: Gene Cooper Measurements Intervals [place] Rate: 65 P: 42 GA: 160 QRS: 44 QRSD: 84 T: 47 QT: 382 QTc: 397 Interpretive Statements Poor data quality, interpretation may be adversely affected Normal sinus rhythm No prior tracing in the system Electronically Signed on 04-15-2021 23:48:24 EDT by Gene Cooper
== END ==
LOC: M EKG 10:41
PROVIDERS: ATTEND Anesthesiology
DX: Z01.818 Encounter for other preprocedural examination (principal)

== ENCOUNTER 2021-04-20 06:35 | Day surgery (SDC) | payer BC ==
[~2021-04-20] VITALS: Ht 165.1 cm; Wt 93.3 kg
[~2021-04-20 06:35] MED LIST changes: +LIDOCAINE 1% MDV 20ML VIAL SQ PRN; +LR 1,000 ML IV ONE; +ceFAZolin SOD 2 GM in IV 1 EA IV ONE
[2021-04-20] MEDS ORDERED: MIDAZOLAM INJ 2MG/2ML VIAL (J2250 PER 1MG) As Ordered ONE (07:05)
[2021-04-20] MEDS ORDERED: propofoL 200 MG/20 ML VIAL As Ordered ONE ×3 (07:06→09:43)
[2021-04-20] MEDS ORDERED: ROCURONIUM BROMIDE 50 MG/5 ML VIAL As Ordered ONE (07:08)
[2021-04-20] MEDS ORDERED: dexameTHASONE 4 MG/ML 1ML VIAL (J1100 PER 1MG) As Ordered ONE (07:10)
[2021-04-20] MEDS ORDERED: LIDOCAINE 2% 100MG/5ML SDV (FOR ANES.) As Ordered ONE (07:10)
[2021-04-20] MEDS ORDERED: ACETAMINOPHEN 1000MG 100ML IV BTL (OFIRMEV) (J0131 PER 10MG) As Ordered ONE (07:11)
[2021-04-20] MEDS ORDERED: fentaNYL 100 MCG/2 ML INJECTION (J3010) As Ordered ONE (07:15)
[2021-04-20] MEDS ORDERED: BUPIVACAINE HCL 0.25% 30ML VIAL As Ordered ONE (07:17)
[2021-04-20] MEDS ORDERED: METHYLENE BLUE 0.5% (5MG/ML) 10 ML AMP (PROVAYBLUE) As Ordered ONE (07:18)
[2021-04-20] MEDS ORDERED: SCOPOLAMINE 1MG TRANSDERMAL PATCH TOP ONE (07:25)
[2021-04-20 07:47] LABS: HEMATOCRIT 46.2 % (36.0-47.0); HEMOGLOBIN 15.2 g/dl (12.0-15.5); MEAN CORPUSCULAR HEMOGLOBIN 30.5 pg (27.0-33.0); MEAN CORPUSCULAR HGB CONC 32.9 g/dl (32.0-36.5); MEAN CORPUSCULAR VOLUME 92.8 fl (80.0-96.0); PLATELET COUNT, AUTOMATED 176 10^3/uL (150-450); RED BLOOD COUNT 4.98 10^6/uL (4.00-5.40); WHITE BLOOD COUNT 5.4 10^3/uL (4.0-10.0)
[2021-04-20] MEDS ORDERED: SUGAMMADEX SODIUM 500 MG/5 ML VIAL (BRIDION) As Ordered ONE (07:59)
[2021-04-20] MEDS ORDERED: ONDANSETRON 4MG/2ML VIAL As Ordered ONE (08:00)
[2021-04-20] MEDS ORDERED: KETOROLAC 60MG 2ML VIAL As Ordered ONE (08:00)
[2021-04-20] MEDS ORDERED: METOCLOPRAMIDE INJ 10MG/2ML VIAL (J2765 PER 1) As Ordered ONE (08:00)
[2021-04-20 08:05] LABS: HCG, SERUM QUALITATIVE NEGATIVE (NEGATIVE)
[2021-04-20] MEDS ORDERED: SILVER NITRATE APPLICATOR As Ordered ONE ×2 (08:19→08:49)
[2021-04-20] MEDS ORDERED: LR 1,000 ML IV SCH ×2 (08:55→09:00)
[2021-04-20] MEDS ORDERED: ONDANSETRON 4MG/2ML VIAL IV PRN (08:55)
[2021-04-20] MEDS ORDERED: oxyCODONE 5MG TAB PO PRN (08:55)
[2021-04-20] MEDS ORDERED: fentaNYL 100 MCG/2 ML INJECTION (J3010) IV PRN (08:55)
[2021-04-20] MEDS ORDERED: MEPERIDINE INJ 25 MG/ML VIAL (J2175) IV PRN (08:55)
--- NOTE | 2021-04-20 09:01 | ROOPDOC ---
[facility] Report Of Operation Report of Operation DATE OF PROCEDURE: 04/20/21 PREPROCEDURE DIAGNOSES: Erosion of Mersilene tape through the cervicovaginal junction POSTPROCEDURE DIAGNOSES: Same as preoperative PROCEDURE PERFORMED: Excision of Mersilene tape and subsequent vaginal/cervical repair. SURGEON: Tessie Bates DO GRINDER SET UP OPERATOR SURFACE: Tessie Araujo MD ANESTHESIA: General ESTIMATED BLOOD LOSS: Approximately 10 mL. COMPLICATIONS: none PREOPERATIVE ANTIBIOTIC: Ancef 2g IV x 1 FINDINGS: Mersilene tape projecting through the cervicovaginal junction at 12 and 7 o'clock position (loop Mersilene projecting into the vagina). Granulation tissue/noted at each of this points. DESCRIPTION OF PROCEDURE: The patient was taken to the operating room with an IV running and placed on the operating table in the dorsal supine position. General anesthesia was administered and the airway was secured without any difficulty. The patient was placed in the high lithotomy position. She was prepared and draped in normal sterile fashion. A time out was performed per protocol. A sterile speculum was placed with good visualization of the cervix. The Mersilene tape was projecting through into the vagina as described above. Two Shy clamps were used to clamp/grasp both ends of the exposed tape. The tape was cut in between these clamps with Cotto scissors. An attempt to slide the entire Mersilene tape through into the vagina was unsuccessful, indicating that the tape was encased in adhesion intra-abdominally. The Mersilene tape was then excised at the level inside the tissue at each of these 12 and 7:00 sites. Once the tape was trimmed and no longer visualized, the overlying tissue was oversewn/imbricated with a series of 3-0 Vicryl [id number] stitches (3 stitches). Each suture site was noted to be hemostatic. There was no exposed granulation tissue. Mersilene tape was not visualized anywhere else. The decision was made to conclude the procedure. Sponge, needle and instrument counts were correct per protocol. The patient tolerated the entire procedure very well. She was transferred to the PACU in good and stable condition. DO KEEGAN Witt JONATHAN R. DO Apr 20, 2021 09:01
[2021-04-20 10:20] VITALS: BP 108/68
== END 2021-04-20 10:20 | disposition home or self-care (01) ==
LOC: M SDC 06:35
PROVIDERS: ATTEND Obstetrics & Gynecology
DX: T83.711A Erosion of implanted vaginal mesh to surrounding organ or tissue, initial encounter (principal); F41.9 Anxiety disorder, unspecified; Z79.899 Other long term (current) drug therapy; Z88.8 Allergy status to other drugs, medicaments and biological substances; Y76.2 Prosthetic and other implants, materials and accessory obstetric and gynecological devices associated with adverse incidents
CPT/HCPCS: 36415; 57295; 84703; 85027; 86850; 86870; 86900; 86901; J0131; J0690; J1100; J1885; J2250; J2405; J2765; J3010

== ENCOUNTER → 2022-06-30 | Outpatient (REF) | payer BC ==
[~2022-06-30] MED LIST changes: -LIDOCAINE 1% MDV 20ML VIAL SQ PRN; -LR 1,000 ML IV ONE; -ceFAZolin SOD 2 GM in IV 1 EA IV ONE
== END ==
LOC: M SFHCWAGY 17:19
PROVIDERS: ATTEND Obstetrics & Gynecology
DX: Z12.4 Encounter for screening for malignant neoplasm of cervix (principal)
CPT/HCPCS: 87624; G0123

== ENCOUNTER → 2023-02-10 | Outpatient (CLI) | payer BC ==
[2023-02-10 11:58] LABS: BASO % 0.7 % (0.0-1.0); EOS # 0.1 10^3/uL (0.0-0.5); EOS % 1.5 % (0.0-3.0); HEMATOCRIT 47.2 % (36.0-47.0); HEMOGLOBIN 15.1 g/dl (12.0-15.5); LYMPH # 1.3 10^3/uL (1.5-5.0); LYMPH % 20.7 % (24.0-44.0); MEAN CORPUSCULAR VOLUME 93.8 fl (80.0-96.0); MONO # 0.6 10^3/uL (0.0-0.8); NEUTROPHILS # 4.1 10^3/uL (1.5-8.5); NEUTROPHILS % 67.8 % (36.0-66.0); PLATELET COUNT, AUTOMATED 194 10^3/uL (150-450); RED BLOOD COUNT 5.03 10^6/uL (4.00-5.40); WHITE BLOOD COUNT 6.1 10^3/uL (4.0-10.0)
[2023-02-10 12:28] LABS: ALKALINE PHOSPHATASE 87 U/L (46-116); ALT/SGPT 20 U/L (7.0-40); AST/SGOT 22 U/L (<34); BLOOD UREA NITROGEN 11 MG/DL (9-23); CALCIUM LEVEL 8.8 MG/DL (8.5-10.1); CARBON DIOXIDE LEVEL 28 MMOL/L (20-31); CHLORIDE LEVEL 104 MMOL/L (98-107); CHOLESTEROL LEVEL 219 MG/DL (<200); CHOLESTEROL RISK RATIO 3.55 (<5); CREATININE FOR GFR 0.71 MG/DL (0.55-1.30); GLOMERULAR FILTRATION RATE > 60.0 (>60); GLUCOSE, FASTING 81 MG/DL (60-100); HDL CHOLESTEROL 61.6 MG/DL (>40); LDL CHOLESTEROL 138.6 MG/DL (<100); NON-HDL-C 157.4 MG/DL; POTASSIUM SERUM 4.5 MMOL/L (3.5-5.1); SODIUM LEVEL 138 MMOL/L (136-145); TOTAL PROTEIN 6.8 G/DL (5.7-8.2); TRIGLYCERIDES LEVEL 94 MG/DL (<150)
[2023-02-10 12:30] LABS: THYROID STIMULATING HORMONE 1.809 uIU/ML (0.55-4.78)
[2023-02-10 12:31] LABS: FREE T4 1.08 NG/DL (0.89-1.76)
[2023-02-10 13:04] LABS: HEMOGLOBIN A1c 4.9 % (4.0-6.0)
== END ==
LOC: M PLALAB 08:58
PROVIDERS: ATTEND Nurse Practitioner Family
DX: E66.9 Obesity, unspecified (principal)

== ENCOUNTER → 2023-04-05 | Outpatient (CLI) | payer BC ==
[~2023-04-05] MED LIST changes: -HYDR200T3 PO; +HYDR200T46 PO
[2023-04-05 17:01] LABS: BASO % 0.6 % (0.0-1.0); EOS # 0.1 10^3/uL (0.0-0.5); EOS % 1.4 % (0.0-3.0); HEMATOCRIT 44.4 % (36.0-47.0); HEMOGLOBIN 14.4 g/dl (12.0-15.5); LYMPH # 1.5 10^3/uL (1.5-5.0); LYMPH % 24.4 % (24.0-44.0); MEAN CORPUSCULAR HEMOGLOBIN 30.4 pg (27.0-33.0); MEAN CORPUSCULAR HGB CONC 32.4 g/dl (32.0-36.5); MEAN CORPUSCULAR VOLUME 93.7 fl (80.0-96.0); MONO # 0.5 10^3/uL (0.0-0.8); MONO % 8.5 % (2.0-8.0); NEUTROPHILS # 4.1 10^3/uL (1.5-8.5); NEUTROPHILS % 64.8 % (36.0-66.0); PLATELET COUNT, AUTOMATED 203 10^3/uL (150-450); RED BLOOD COUNT 4.74 10^6/uL (4.00-5.40); WHITE BLOOD COUNT 6.3 10^3/uL (4.0-10.0)
[2023-04-05 17:27] LABS: ALKALINE PHOSPHATASE 93 U/L (46-116); ALT/SGPT 20 U/L (7.0-40); AST/SGOT 19 U/L (<34); BILIRUBIN,TOTAL 0.9 MG/DL (0.3-1.2); BLOOD UREA NITROGEN 13 MG/DL (9-23); CARBON DIOXIDE LEVEL 27 MMOL/L (20-31); CHLORIDE LEVEL 106 MMOL/L (98-107); GLOMERULAR FILTRATION RATE > 60.0 (>58); GLUCOSE, FASTING 87 MG/DL (60-100); POTASSIUM SERUM 4.7 MMOL/L (3.5-5.1); SODIUM LEVEL 140 MMOL/L (136-145)
== END ==
LOC: M LAB 16:09
PROVIDERS: ATTEND Registered Nurse
DX: L03.116 Cellulitis of left lower limb (principal)